=== PATIENT | male | born 2005 | race Caucasian/White ===

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

== ENCOUNTER 2024-04-07 23:50 | Emergency (ER) | payer OTHER ==
[2024-04-08] MEDS: Glucagon,Human Recombinant 1 MG Vial IM ONE (00:12)
== END 2024-04-08 01:24 | disposition home or self-care (01) ==
LOC: MW.ED 23:50
DX: T18.108A Unspecified foreign body in esophagus causing other injury, initial encounter (principal); Z79.899 Other long term (current) drug therapy
CPT/HCPCS: 96372; 99283; J1610